=== PATIENT | female | born 1985 | race Caucasian/White ===

== ENCOUNTER 2016-08-18 20:45 | Emergency (ER) | payer MEDICAID ==
[~2016-08-18] VITALS: Ht 160 cm; Wt 88.0 kg
[~2016-08-18 20:45] MED LIST: ALPR1TAB7 PO; LEVO75TA4 PO; NEBI5TAB8 PO
[2016-08-18 20:50] VITALS: Ht 160 cm; Wt 88.0 kg
--- OUTSIDE RECORDS SUMMARY | 2016-08-18 20:50 | XMS REPORT | Referral Summary ---
Author Author [facility] Organization [facility] Address Unknown Phone Unavailable Care Team Providers Care Replenisher Name Role Phone No PCP, States Primary Care Physician [phone] Encounter VC Date(s): 02/17/16 - 02/17/16 [facility] [address] [id number] Discharge Diagnosis: Recurrent UTI Discharge Disposition: 01-Home or Self Care Attending Physician: Rose Marie Lind MD Admitting Physician: Rose Marie Lind MD Vital Signs Most recent to 1 oldest [Reference Range]: Blood Pressure 120/70 mmHg [90-140/60-90 mmHg] (02/17/16 9:23 AM) Problem List Condition Effective Dates Status Health Status Informant Abnormal Pap smear Active of cervix(Confirmed)1 Acute Active pain(Confirmed) Anemia(Confirmed) Active patient Anxiety(Confirmed)2 Active Bleeding Active precautions(Confirme d)3 Ovarian Active patient cyst(Confirmed) Dyslipidemia(Confirm Active ed) Stomach Active patient ulcer(Confirmed) AXIS I: ISRA Active (generalized anxiety disorder)(Confirmed) Gestational Active diabetes(Confirmed) Chanelle's Active patient disease(Confirmed) Headache(Confirmed) Active patient Hypertension(Confirm Active ed) Hypothyroidism Active (disorder)(Confirmed ) Knowledge Active deficit(Confirmed)4 Low back Active pain(Confirmed) Non-toxic uninodular Active goiter (disorder)(Confirmed ) AXIS I: Panic Active disorder without agoraphobia(Confirme d) Paresthesias(Confirm Active ed) Periodic limb Active movements of sleep(Confirmed) (Confirmed) Resolved Pulmonary Active patient embolism(Confirmed) AXIS I: MDD (major Active depressive disorder), recurrent episode, moderate(Confirmed) Sinus Active patient tachycardia(Confirme d) Thyroid Active nodule(Confirmed) : abnormal Pap smear, then 04/2011:colposcopy with ECC, then IUD, 2011 : Repeat pap done but couldn't find result. 2Problem added automatically by system based on initiation of Anxiety Plan of Care 3Problem added automatically by system based on initiation of Bleeding Precautions Plan of Care 4Problem added automatically by system based on initiation of Knowledge Deficit Plan of Care Allergies, Adverse Reactions, Alerts Substance Reaction Severity Status metoclopramide Adverse Reaction Severe Active Shortness of breath Toradol Nausea.... Active Medications acetaminophen 325 mg oral tablet 650 mg 2 tabs, Oral, q4hr, Other (See Comment), 0 Refill(s) Start Date: 07/19/15 Status: Ordered ALPRAZolam 1 mg oral tablet 1 mg 1 tabs, Oral, TID, as needed for anxiety, by dr May, 0 Refill(s) Start Date: 07/18/15 Status: Ordered Bystolic 5 mg oral tablet 5 mg 1 tabs, Oral, Daily, 0 Refill(s) Start Date: 07/18/15 Status: Ordered Macrobid 100 mg oral capsule 100 mg 1 caps, Oral, BID, X 10 days, # 20 caps, 0 Refill(s), Pharmacy: [facility] [id number], 1 caps Oral BID,x10 days Start Date: 02/17/16 Stop Date: 02/27/16 Status: Ordered Synthroid 75 mcg (0.075 mg) oral tablet 75 mcg 1 tabs, Oral, Daily, # 30 tabs, 11 Refill(s), Pharmacy: [facility] [id number], 1 tabs Oral Daily,x30 days Start Date: 12/22/15 Stop Date: 12/16/16 Status: Ordered Results Urinalysis Most recent to 1 oldest [Reference Range]: UA WBC [0-4] 0-2 (02/17/16 3:00 PM) UA RBC [0-4] 0-4 (02/17/16 3:00 PM) Epithelial Cells 0-2 (02/17/16 3:00 PM) UA Bacteria Moderate *ABN* (02/17/16 3:00 PM) UA Mucous Present (02/17/16 3:00 PM) Immunizations No data available for this section Procedures Procedure Date Related Diagnosis Body Site IUD - Removal of intrauterine device 03/2015 Insertion of IUD 11/2014 delivery Ovarian cyst Social History Social History Type Response Smoking Status Never smoker; Type: Cigarettes Assessment and Plan Extracted from: Title: Office Visit Note Author: Rose Marie Lind MD Date: 02/17/16 Assessment/Plan 30 yo F with recurrent UTIs. Recurrent UTI Discussed the pathophysiology of recurrent UTIs including inappropriate abx therapy, bacterial persistence due to anatomic defects etc. Most recent CT showed no urinary stones or obvious anatomic abnormalities in the pelvis. Will schedule patient for cystoscopy and pelvic exam. Will obtain UA and culture today. Will treat her with Macrobid for 10 days. Advised her to start taking OTC cranberry pills and D-mannose pills. Will schedule her for pelvic floor physical therapy. RTC in 3 months. Ordered: nitrofurantoin, 100 mg 1 caps, Oral, BID, X 10 days, # 20 caps, 0 Refill(s), Pharmacy: [facility] [id number], 1 caps Oral BID,x10 days Urinalysis Microscopic Urine Culture
--- OUTSIDE RECORDS SUMMARY | 2016-08-18 20:51 | XMS REPORT | Referral Summary ---
Author Author [facility] Organization [facility] Address Unknown Phone Unavailable Care Team Providers Care Packaging Assembler Name Role Phone No PCP, States Primary Care Physician [phone] Encounter VC Date(s): 02/29/16 - 02/29/16 [facility] [address] [address] [facility] Discharge Diagnosis: Thyroid nodule Discharge Disposition: 01-Home or Self Care Attending Physician: Warren Helm MD Admitting Physician: Warren Helm MD Vital Signs Most recent to 1 oldest [Reference Range]: Peripheral Pulse 104 bpm Rate [60-100 bpm] *HI* (02/29/16 3:55 PM) Blood Pressure 100/62 mmHg [90-140/60-90 mmHg] (02/29/16 3:55 PM) Problem List Condition Effective Dates Status Health [...] 0 Refill(s) Start Date: 07/18/15 Status: Ordered Synthroid 75 mcg (0.075 mg) oral tablet 75 mcg 1 tabs, Oral, Daily, # 30 tabs, 11 Refill(s), Pharmacy: [facility] [id number], 1 tabs Oral Daily,x30 days Start Date: 12/22/15 Stop Date: 12/16/16 Status: Ordered Results No data available for this section Immunizations No data available for this section Procedures Procedure Date Related Diagnosis Body Site IUD - Removal of intrauterine device 03/2015 Insertion of IUD 11/2014 delivery Ovarian cyst Social History Social History Type Response Smoking Status Never smoker; Type: Cigarettes Assessment and Plan Extracted from: Title: Office Visit Note Author: Warren Helm MD Date: 02/29/16 Assessment/Plan 1.Thyroid nodule check tsh, ft4. repeat thyroid ultrasound. f/u in 1 year. Ordered: Free T4 TSH 3rd Generation US Thyroid
--- OUTSIDE RECORDS SUMMARY | 2016-08-18 20:51 | XMS REPORT | Referral Summary ---
Author Author [facility] Organization [facility] Address Unknown Phone Unavailable Care Team Providers Care Gallery Host Name Role Phone No PCP, Pt States Primary Care Physician [phone] Encounter VC Date(s): 06/21/16 - 06/21/16 [facility] [address] [place] [address] [phone] Final: Pelvic and perineal pain Discharge Diagnosis: Pelvic pain Discharge Disposition: 01-Home or Self Care Attending Physician: Christiano Scott MD Admitting Physician: Christiano Scott MD Referring Physician: Self Referred, X Vital Signs Most recent to 1 oldest [Reference Range]: Temperature Oral 36.5 degC [35.8-37.3 degC] (06/21/16 4:08 PM) Peripheral Pulse 90 bpm Rate [60-100 bpm] (06/21/16 5:12 PM) Respiratory Rate 16 br/min [14-20 br/min] (06/21/16 5:12 PM) Blood Pressure 130/83 mmHg [90-140/60-90 mmHg] (06/21/16 5:12 PM) SpO2 100 % (06/21/16 5:12 PM) Problem List Condition Effective Dates Status [...] 0 Refill(s) Start Date: 07/18/15 Status: Ordered liothyronine 5 mcg oral tablet See Instructions, TAKE 1 TABLET BY MOUTH DAILY, # 90 tabs, 2 Refill(s), eRx: [facility] [id number], TAKE 1 TABLET BY MOUTH DAILY Start Date: 04/09/16 Status: Ordered magnesium citrate 1.745 g/30 mL oral liquid 8.725 g 150 mL, Oral, Once, # 300 mL, 0 Refill(s) Start Date: 06/11/16 Status: Ordered Percocet 5/325 oral tablet 1 tabs, Oral, q6hr, as needed for pain, # 6 tabs, 0 Refill(s) Start Date: 06/21/16 Status: Ordered Synthroid 75 mcg (0.075 mg) oral tablet 75 mcg 1 tabs, Oral, Daily, # 30 tabs, 11 Refill(s), Pharmacy: [facility] [id number], 1 tabs Oral Daily,x30 days Start Date: 12/22/15 Stop Date: 12/16/16 Status: Ordered Results Hematology Most recent to 1 oldest [Reference Range]: WBC [4.8-10.8 11.5 10*3/uL 10*3/uL] *HI* (06/21/16 4:13 PM) RBC [4.00-5.20] 4.01 (06/21/16 4:13 PM) Hgb [12.0-16.0 12.1 gm/dL gm/dL] (06/21/16 4:13 PM) Hct [37.0-47.0 %] 36.8 % *LOW* (06/21/16 4:13 PM) MCV [82.0-99.0 fL] 91.8 fL (06/21/16 4:13 PM) MCH [27.0-32.0 pg] 30.2 pg (06/21/16 4:13 PM) MCHC [32.0-36.0 32.9 gm/dL gm/dL] (06/21/16 4:13 PM) RDW [11.5-14.5 %] 13.6 % (06/21/16 4:13 PM) Platelet [150-400 383 10*3/uL 10*3/uL] (06/21/16 4:13 PM) MPV [9.4-12.4 fL] 9.6 fL (06/21/16 4:13 PM) Immature 0.2 % Granulocytes (06/21/16 4:13 PM) [0.0-1.0 %] Neutrophils [51-75 64 % %] (06/21/16 4:13 PM) Lymphocytes [20-46 24 % %] (06/21/16 4:13 PM) Monocytes [4-11 %] 6 % (06/21/16 4:13 PM) Eosinophils [0-4 %] 5 % *HI* (06/21/16 4:13 PM) Basophils [0-2 %] 0 % (06/21/16 4:13 PM) Neutro Absolute 7.39 [1.90-7.00] *HI* (06/21/16 4:13 PM) Lymph Absolute 2.78 [0.80-3.30] (06/21/16 4:13 PM) [place] Absolute 0.65 [0.30-1.00] (06/21/16 4:13 PM) Eos Absolute 0.60 [0.00-0.50] *HI* (06/21/16 4:13 PM) Baso Absolute 0.05 [0.00-0.20] (06/21/16 4:13 PM) Nucleated RBC 0.0 /100 WBC Automated [0 /100 (06/21/16 4:13 PM) WBC] Chemistry Most recent to 1 oldest [Reference Range]: Sodium Lvl [136-144 137 mEq/L mEq/L] (06/21/16 4:13 PM) Potassium Lvl 3.9 mEq/L [3.6-5.1 mEq/L] (06/21/16 4:13 PM) Chloride [99-109 104 mEq/L mEq/L] (06/21/16 4:13 PM) CO2 [22-32 mEq/L] 25 mEq/L (06/21/16 4:13 PM) AGAP [3-20] 8 (06/21/16 4:13 PM) BUN [4-20 mg/dL] 12 mg/dL (06/21/16 4:13 PM) Glucose Lvl [70-100 90 mg/dL mg/dL] (06/21/16 4:13 PM) Creatinine Lvl 0.76 mg/dL [0.44-1.03 mg/dL] (06/21/16 4:13 PM) eGFR [>60] >60 1 (06/21/16 4:13 PM) Calcium Lvl 9.0 mg/dL [8.6-10.0 mg/dL] (06/21/16 4:13 PM) Albumin Lvl [3.5-4.8 3.7 gm/dL gm/dL] (06/21/16 4:13 PM) Total Protein 6.7 gm/dL [6.1-7.9 gm/dL] (06/21/16 4:13 PM) Globulin [1.9-4.3 3.0 gm/dL gm/dL] (06/21/16 4:13 PM) ALT [14-54 U/L] 14 U/L (06/21/16 4:13 PM) AST [15-41 U/L] 14 U/L *LOW* (06/21/16 4:13 PM) Alk Phos [26-104 80 U/L U/L] (06/21/16 4:13 PM) Bili Total [0.2-1.2 0.1 mg/dL 2 mg/dL] *LOW* (06/21/16 4:13 PM) Lipase Lvl [8-48 30 U/L U/L] (06/21/16 4:13 PM) Screen, Negative Urine NPT (06/21/16 4:21 PM) 1Result Comment: Multiply eGFR results by 1.21 for race. 2Result Comment: Naproxen, specifically the metabolite O-desmethylnaproxen, may cause spurious elevation in Total Bilirubin levels. Urinalysis Most recent to 1 oldest [Reference Range]: UA Color Yellow (06/21/16 4:13 PM) UA Appear Clear (06/21/16 4:13 PM) UA pH [5.0-8.0] 7.0 (06/21/16 4:13 PM) UA Leuk Est Pos 2+ [Negative] *ABN* (06/21/16 4:13 PM) UA Nitrite Negative [Negative] (06/21/16 4:13 PM) UA Protein Negative [Negative] (06/21/16 4:13 PM) UA Glucose Negative [Negative] (06/21/16 4:13 PM) UA Ketones Negative [Negative] (06/21/16 4:13 PM) UA Urobilinogen Negative [<1.0] (06/21/16 4:13 PM) UA Bili [Negative] Negative (06/21/16 4:13 PM) UA Blood [Negative] Negative (06/21/16 4:13 PM) UA Spec Grav 1.020 [1.003-1.030] (06/21/16 4:13 PM) Type Catheter (06/21/16 4:13 PM) UA WBC [0-4] 0-2 (06/21/16 4:13 PM) UA RBC [0-2] 0-2 (06/21/16 4:13 PM) Epithelial Cells 2-5 (06/21/16 4:13 PM) UA Bacteria None Seen (06/21/16 4:13 PM) UA Mucous Present (06/21/16 4:13 PM) Immunizations No data available for this section Procedures Procedure Date Related Diagnosis Body Site IUD - Removal of intrauterine device 03/2015 Insertion of IUD 11/2014 delivery Ovarian cyst Social History Social History Type Response Smoking Status Never smoker; Type: Cigarettes Assessment and Plan No data available for this section
--- OUTSIDE RECORDS SUMMARY | 2016-08-18 20:54 | XMS REPORT ---
Author Author [place] - Organization Unknown Address Unknown Phone Unavailable Allergies, Adverse Reactions, Alerts * Reglan causes Adverse Reaction. * Latex Allergy has not been assessed. * IV Contrast Allergy has not been assessed. Problems No relevant problems exist. Procedures No relevant procedures performed. Medication Medication reconciliation has not been performed. Results LAB--BEDSIDE TESTING from 03/21/2013 10:25 PMAnion Gap NPT 12 (3-20 ) BUN Venous NPT 8 mg/dl (4-20 mg/dl) Calcium Ionized Venous 1.23 mmol/L (1.19-1.41 mmol/L) Venous CL NPT 102 mEq/L (99-109 mEq/L) Creatinine Venous NPT 0.7 mg/dL (0.4-1.0 mg/dL) Glucose Venous 86 mg/dL (70-100 mg/dL) HCT Venous NPT 35.0 % L (37.0-47.0 %) HGB Venous NPT 11.9 g/dL L (12.0-16.0 g/dL) Potassium Venous 3.7 mEq/L (3.6-5.1 mEq/L) Sodium Venous 137 mEq/L (136-144 mEq/L) Total CO2 Venous 23 mEq/L L (25-29 mEq/L) LAB--CHEMISTRY from 03/21/2013 10:18 PMHCG Quant 4767 mIU/mL LAB--MICROBIOLOGY from 03/21/2013 10:18 PMVaginitis (G vag, Trichomonas, Jenny ) Panel A Source: Cervix/Vaginal Collected: 03/21/13 22:18 Site: Received : 03/21/13 22:24 Order#: [id number] Affirm Vaginitis Panel FINAL 03/21/13 23:16 Positive for Trichomonas vaginalis Negative for Gardnerella vaginalis Negative for Jenny species PEREIRA FOR RESULTS: * - NEW RESULT - RESULT WAS MODIFIED AFTER FINAL STATUS SET LAB--URINE TESTS from 03/21/2013 8:50 PMAppearance Clear Bilirubin Negative (Negative ) Blood Negative (Negative ) Color Lt Yellow Glucose Negative (Negative ) Ketones, Urine Negative (Negative ) Leukocytes Esterase Trace A (Negative ) Nitrites Negative (Negative ) pH, Urine 5.0 (5.0-8.0 ) Protein Negative (Negative ) Specific Kite 1.017 (1.003-1.030 ) Collection Type: Clean Catch Urobilinogen Negative mg/dL (-<1.0 mg/dL) Bacteria Occasional A Epithelial Cells 10-20 /HPF Mucus Present RBC 0-2 /HPF (0-2 /HPF) Trichomonas Present A WBC 10-20 /HPF A (0-4 /HPF)
--- OUTSIDE RECORDS SUMMARY | 2016-08-18 20:54 | XMS REPORT | Referral Summary ---
Author Author [facility] Organization [facility] Address Unknown Phone Unavailable Care Team Providers Care Migration Agent Name Role Phone No PCP, Pt States Primary Care Physician [phone] Encounter VC Date(s): 06/11/16 - 06/11/16 [facility] [address] [place] [address] Discharge Diagnosis: Abdominal pain, acute Discharge Disposition: 01-Home or Self Care Attending Physician: Christiano Scott MD Admitting Physician: Christiano Scott MD Referring Physician: Self Referred, X Vital Signs Most recent to 1 oldest [Reference Range]: Temperature Oral 36.5 degC [35.8-37.3 degC] (06/11/16 6:37 PM) Peripheral Pulse 100 bpm Rate [60-100 bpm] (06/11/16 6:37 PM) Respiratory Rate 18 br/min [14-20 br/min] (06/11/16 6:37 PM) Blood Pressure 132/84 mmHg [90-140/60-90 mmHg] (06/11/16 6:37 PM) SpO2 100 % (06/11/16 6:37 PM) Problem List Condition Effective Dates Status [...] DAILY, # 90 tabs, 2 Refill(s), eRx: [id number], TAKE 1 TABLET BY MOUTH DAILY Start Date: 04/09/16 Status: Ordered magnesium citrate 1.745 g/30 mL oral liquid 8.725 g 150 mL, Oral, Once, # 300 mL, 0 Refill(s) Start Date: 06/11/16 Status: Ordered Percocet 5/325 oral tablet 1 tabs, Oral, q6hr, as needed for pain, X 3 days, # 12 tabs, 0 Refill(s) Start Date: 06/11/16 Stop Date: 06/14/16 Status: Ordered Synthroid 75 mcg (0.075 mg) oral tablet 75 mcg 1 tabs, Oral, Daily, # 30 tabs, 11 Refill(s), Pharmacy: [facility] [id number], 1 tabs Oral Daily,x30 days Start Date: 12/22/15 Stop Date: 12/16/16 Status: Ordered Results Hematology Most recent to 1 oldest [Reference Range]: WBC [4.8-10.8 9.3 10*3/uL 10*3/uL] (06/11/16 5:39 PM) RBC [4.00-5.20] 4.14 (06/11/16 5:39 PM) Hgb [12.0-16.0 12.7 gm/dL gm/dL] (06/11/16 5:39 PM) Hct [37.0-47.0 %] 37.9 % (06/11/16 5:39 PM) MCV [82.0-99.0 fL] 91.5 fL (06/11/16 5:39 PM) MCH [27.0-32.0 pg] 30.7 pg (06/11/16 5:39 PM) MCHC [32.0-36.0 33.5 gm/dL gm/dL] (06/11/16 5:39 PM) RDW [11.5-14.5 %] 13.8 % (06/11/16 5:39 PM) Platelet [150-400 359 10*3/uL 10*3/uL] (06/11/16 5:39 PM) MPV [9.4-12.4 fL] 9.7 fL (06/11/16 5:39 PM) Immature 0.3 % Granulocytes (06/11/16 5:39 PM) [0.0-1.0 %] Neutrophils [51-75 69 % %] (06/11/16 5:39 PM) Lymphocytes [20-46 21 % %] (06/11/16 5:39 PM) Monocytes [4-11 %] 6 % (06/11/16 5:39 PM) Eosinophils [0-4 %] 4 % (06/11/16 5:39 PM) Basophils [0-2 %] 1 % (06/11/16 5:39 PM) Neutro Absolute 6.38 [1.90-7.00] (06/11/16 5:39 PM) Lymph Absolute 1.94 [0.80-3.30] (06/11/16 5:39 PM) [place] Absolute 0.55 [0.30-1.00] (06/11/16 5:39 PM) Eos Absolute 0.35 [0.00-0.50] (06/11/16 5:39 PM) Baso Absolute 0.05 [0.00-0.20] (06/11/16 5:39 PM) Nucleated RBC 0.0 /100 WBC Automated [0 /100 (06/11/16 5:39 PM) WBC] Chemistry Most recent to 1 oldest [Reference Range]: Sodium Lvl [136-144 139 mEq/L mEq/L] (06/11/16 5:39 PM) Potassium Lvl 4.2 mEq/L [3.6-5.1 mEq/L] (06/11/16 5:39 PM) Chloride [99-109 104 mEq/L mEq/L] (06/11/16 5:39 PM) CO2 [22-32 mEq/L] 28 mEq/L (06/11/16 5:39 PM) AGAP [3-20] 7 (06/11/16 5:39 PM) BUN [4-20 mg/dL] 11 mg/dL (06/11/16 5:39 PM) Glucose Lvl [70-100 111 mg/dL mg/dL] *HI* (06/11/16 5:39 PM) Creatinine Lvl 0.59 mg/dL [0.44-1.03 mg/dL] (06/11/16 5:39 PM) eGFR [>60] >60 1 (06/11/16 5:39 PM) Calcium Lvl 9.5 mg/dL [8.6-10.0 mg/dL] (06/11/16 5:39 PM) Albumin Lvl [3.5-4.8 3.7 gm/dL gm/dL] (06/11/16 5:39 PM) Total Protein 6.9 gm/dL [6.1-7.9 gm/dL] (06/11/16 5:39 PM) Globulin [1.9-4.3 3.2 gm/dL gm/dL] (06/11/16 5:39 PM) ALT [14-54 U/L] 26 U/L (06/11/16 5:39 PM) AST [15-41 U/L] 21 U/L (06/11/16 5:39 PM) Alk Phos [26-104 84 U/L U/L] (06/11/16 5:39 PM) Bili Total [0.2-1.2 0.2 mg/dL 2 mg/dL] (06/11/16 5:39 PM) Lipase Lvl [8-48 29 U/L U/L] (06/11/16 5:39 PM) U Beta hCG Ql Neg (06/11/16 5:56 PM) 1Result Comment: Multiply eGFR results by 1.21 for race. 2Result Comment: Naproxen, specifically the metabolite O-desmethylnaproxen, may cause spurious elevation in Total Bilirubin levels. Urinalysis Most recent to 1 oldest [Reference Range]: UA Color Yellow (06/11/16 5:39 PM) UA Appear Sl Cloudy (06/11/16 5:39 PM) UA pH [5.0-8.0] 7.0 (06/11/16 5:39 PM) UA Leuk Est Negative [Negative] (06/11/16 5:39 PM) UA Nitrite Negative [Negative] (06/11/16 5:39 PM) UA Protein Negative [Negative] (06/11/16 5:39 PM) UA Glucose Negative [Negative] (06/11/16 5:39 PM) UA Ketones Negative [Negative] (06/11/16 5:39 PM) UA Urobilinogen Negative [<1.0] (06/11/16 5:39 PM) UA Bili [Negative] Negative (06/11/16 5:39 PM) UA Blood [Negative] Negative (06/11/16 5:39 PM) UA Spec Grav 1.020 [1.003-1.030] (06/11/16 5:39 PM) Type Catheter (06/11/16 5:39 PM) Immunizations No data available for this section Procedures Procedure Date Related Diagnosis Body Site IUD - Removal of intrauterine device 03/2015 Insertion of IUD 11/2014 delivery Ovarian cyst Social History Social History Type Response Smoking Status Never smoker; Type: Cigarettes Assessment and Plan No data available for this section
--- OUTSIDE RECORDS SUMMARY | 2016-08-18 20:55 | XMS REPORT | Referral Summary ---
Author Author [facility] Organization [facility] Address Unknown Phone Unavailable Care Team Providers Care Forestry Hunter Name Role Phone No PCP, Pt States Primary Care Physician [phone] Encounter VC Date(s): 06/14/16 - 06/15/16 [facility] [address] [place] [address] Final: Pelvic and perineal pain Discharge Diagnosis: Pain pelvic Discharge Disposition: 01-Home or Self Care Attending Physician: Christiano Scott MD Admitting Physician: Christiano Scott MD Vital Signs Most recent to 1 oldest [Reference Range]: Temperature Oral 36.8 degC [35.8-37.3 degC] (06/14/16 9:26 PM) Peripheral Pulse 96 bpm Rate [60-100 bpm] (06/14/16 9:26 PM) Heart Rate Monitored 100 bpm [60-100 bpm] (06/15/16 1:00 AM) Respiratory Rate 18 br/min [14-20 br/min] (06/15/16 1:00 AM) Blood Pressure 110/60 mmHg [90-140/60-90 mmHg] (06/15/16 1:00 AM) Mean Arterial 79 mmHg Pressure, Cuff (06/15/16 12:45 AM) SpO2 99 % (06/15/16 1:00 AM) Problem List Condition Effective Dates Status [...] DAILY, # 90 tabs, 2 Refill(s), eRx: [facility] [id number], TAKE 1 TABLET BY MOUTH DAILY Start Date: 04/09/16 Status: Ordered magnesium citrate 1.745 g/30 mL oral liquid 8.725 g 150 mL, Oral, Once, # 300 mL, 0 Refill(s) Start Date: 06/11/16 Status: Ordered Synthroid 75 mcg (0.075 mg) oral tablet 75 mcg 1 tabs, Oral, Daily, # 30 tabs, 11 Refill(s), Pharmacy: [facility] [id number], 1 tabs Oral Daily,x30 days Start Date: 12/22/15 Stop Date: 12/16/16 Status: Ordered Results Hematology Most recent to 1 oldest [Reference Range]: WBC [4.8-10.8 11.8 10*3/uL 10*3/uL] *HI* (06/14/16 10:56 PM) RBC [4.00-5.20] 4.11 (06/14/16 10:56 PM) Hgb [12.0-16.0 12.2 gm/dL gm/dL] (06/14/16 10:56 PM) Hct [37.0-47.0 %] 37.3 % (06/14/16 10:56 PM) MCV [82.0-99.0 fL] 90.8 fL (06/14/16 10:56 PM) MCH [27.0-32.0 pg] 29.7 pg (06/14/16 10:56 PM) MCHC [32.0-36.0 32.7 gm/dL gm/dL] (06/14/16 10:56 PM) RDW [11.5-14.5 %] 13.6 % (06/14/16 10:56 PM) Platelet [150-400 368 10*3/uL 10*3/uL] (06/14/16 10:56 PM) MPV [9.4-12.4 fL] 9.7 fL (06/14/16 10:56 PM) Immature 0.2 % Granulocytes (06/14/16 10:56 PM) [0.0-1.0 %] Neutrophils [51-75 63 % %] (06/14/16 10:56 PM) Lymphocytes [20-46 28 % %] (06/14/16 10:56 PM) Monocytes [4-11 %] 6 % (06/14/16 10:56 PM) Eosinophils [0-4 %] 3 % (06/14/16 10:56 PM) Basophils [0-2 %] 0 % (06/14/16 10:56 PM) Neutro Absolute 7.42 [1.90-7.00] *HI* (06/14/16 10:56 PM) Lymph Absolute 3.27 [0.80-3.30] (06/14/16 10:56 PM) [place] Absolute 0.74 [0.30-1.00] (06/14/16 10:56 PM) Eos Absolute 0.30 [0.00-0.50] (06/14/16 10:56 PM) Baso Absolute 0.05 [0.00-0.20] (06/14/16 10:56 PM) Nucleated RBC 0.0 /100 WBC Automated [0 /100 (06/14/16 10:56 PM) WBC] Chemistry Most recent to 1 oldest [Reference Range]: Sodium Lvl [136-144 134 mEq/L mEq/L] *LOW* (06/14/16 10:56 PM) Potassium Lvl 3.8 mEq/L [3.6-5.1 mEq/L] (06/14/16 10:56 PM) Chloride [99-109 101 mEq/L mEq/L] (06/14/16 10:56 PM) CO2 [22-32 mEq/L] 26 mEq/L (06/14/16 10:56 PM) AGAP [3-20] 7 (06/14/16 10:56 PM) BUN [4-20 mg/dL] 14 mg/dL (06/14/16 10:56 PM) Glucose Lvl [70-100 93 mg/dL mg/dL] (06/14/16 10:56 PM) Creatinine Lvl 0.69 mg/dL [0.44-1.03 mg/dL] (06/14/16 10:56 PM) eGFR [>60] >60 1 (06/14/16 10:56 PM) Calcium Lvl 9.0 mg/dL [8.6-10.0 mg/dL] (06/14/16 10:56 PM) Albumin Lvl [3.5-4.8 3.7 gm/dL gm/dL] (06/14/16 10:56 PM) Total Protein 7.2 gm/dL [6.1-7.9 gm/dL] (06/14/16 10:56 PM) Globulin [1.9-4.3 3.5 gm/dL gm/dL] (06/14/16 10:56 PM) ALT [14-54 U/L] 22 U/L (06/14/16 10:56 PM) AST [15-41 U/L] 18 U/L (06/14/16 10:56 PM) Alk Phos [26-104 85 U/L U/L] (06/14/16 10:56 PM) Bili Total [0.2-1.2 0.1 mg/dL 2 mg/dL] *LOW* (06/14/16 10:56 PM) Lipase Lvl [8-48 30 U/L U/L] (06/14/16 10:56 PM) Screen, Negative Urine NPT (06/14/16 10:18 PM) 1Result Comment: Multiply eGFR results by 1.21 for race. 2Result Comment: Naproxen, specifically the metabolite O-desmethylnaproxen, may cause spurious elevation in Total Bilirubin levels. Urinalysis Most recent to 1 oldest [Reference Range]: UA Color Yellow (06/14/16 10:20 PM) UA Appear Sl Cloudy (06/14/16 10:20 PM) UA pH [5.0-8.0] 6.0 (06/14/16 10:20 PM) UA Leuk Est Negative [Negative] (06/14/16 10:20 PM) UA Nitrite Negative [Negative] (06/14/16 10:20 PM) UA Protein Negative [Negative] (06/14/16 10:20 PM) UA Glucose Negative [Negative] (06/14/16 10:20 PM) UA Ketones Negative [Negative] (06/14/16 10:20 PM) UA Urobilinogen Negative [<1.0] (06/14/16 10:20 PM) UA Bili [Negative] Negative (06/14/16 10:20 PM) UA Blood [Negative] Negative (06/14/16 10:20 PM) UA Spec Grav 1.020 [1.003-1.030] (06/14/16 10:20 PM) Type Catheter (06/14/16 10:20 PM) Immunizations No data available for this section Procedures Procedure Date Related Diagnosis Body Site IUD - Removal of intrauterine device 03/2015 Insertion of IUD 11/2014 delivery Ovarian cyst Social History Social History Type Response Smoking Status Never smoker; Type: Cigarettes Assessment and Plan No data available for this section
--- OUTSIDE RECORDS SUMMARY | 2016-08-18 21:08 | XMS REPORT ---
Author Author [facility], [facility] - Organization Unknown Address Unknown Phone Unavailable [...] 22:18 Site: Received : 03/21/13 22:24 Order#: [id number] Affirm Vaginitis Panel FINAL 03/21/13 23:16 Positive [...] (5.0-8.0 ) Protein Negative (Negative ) Specific [place] 1.017 (1.003-1.030 ) Collection Type: Clean Catch Urobilinogen Negative mg/dL (-<1.0 mg/dL) Bacteria Occasional A Epithelial Cells 10-20 /HPF Mucus Present RBC 0-2 /HPF (0-2 /HPF) Trichomonas Present A WBC 10-20 /HPF A (0-4 /HPF)
[2016-08-18] MEDS ORDERED: ORPHENADRINE 60mg/2ml INJECTION IV ONE (21:15)
[2016-08-18] MEDS ORDERED: ONDANSETRON 4mg/2ml INJECTION IV ONE (21:15)
[2016-08-18] MEDS ORDERED: NAPROXEN 500 MG TABLET PO ONE (21:15)
[2016-08-18] MEDS ORDERED: NORMAL SALINE 1,000 ML IV ONE (21:15)
--- NOTE | 2016-08-18 21:17 | ERPDOC ---
Departure Disposition Decision Date: Aug 18, 2016 Disposition Decision Time: 22:30 Disposition: 01 DISCHARGED HOME, SELF-CARE Impression Impression Impression: Primary Impression: Viral syndrome Additional Impressions: Chest wall pain Tension headache Severity: Severe Condition: Improved Seen By: Physician only Referrals: SY THOMAS (PCP) Patient Instructions: Chest Wall Pain (ED) Problems/Meds/Labs Reviewed?: Yes Medications reviewed and manag: Yes Additional Instructions: Naprosyn/Aleve 2 tablets twice daily for baseline pain control May also use Tylenol up to 1000 mg 4 times daily OR your prescribed narcotic pain medication in addition. Zofran 4 mg up to 4 times daily as needed for nausea See your doctor next week if not improving Follow up care ordered?: Yes Mental Status: Alert Scripts Ondansetron (Zofran Odt) 4 Mg Tab.rapdis 4 MG PO Q6HR, #20 TAB Oral disintegrating tablet Prov: TOMASA BONILLA MD 08/18/16 Baclofen (Baclofen) 10 Mg Tablet 10 MG PO TID, #30 TAB 0 Refills Prov: TOMASA BONILLA MD 08/18/16 HPI - Chest Pain General Chief Complaint: Chest Pain Stated Complaint: CHEST PAIN/PAIN IN BACK OF NECK Time Seen by Provider: 20:47 Source: patient, family Exam Limitations: no limitations HPI - Chest Pain Initial Comments Patient has had left-sided upper lateral chest pain, left shoulder pain, and left posterior neck pain for the past 12+ hours. Patient has no known injury, but woke up this morning with feelings of nausea and achiness in the left upper chest radiating into the shoulder posterior left shoulder and neck. 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 She was called out Phenergan 25 mg , she took this and one of her Percocet 5 mg without relief. Patient continues to have nausea with generalized pain over the left upper chest , left lateral shoulder, left posterior shoulder and left neck. Occurred At: home Onset/Timing: Rapid Duration: 12-24 hrs Activities at Onset/Context: rest Location: anterior L, epigastric, abdomen 1 - Pain, tenderness 2 - Pain, tenderness Associated Symptoms: abdominal pain, dizziness, fast HR (normal for her), nausea/vomiting, DENIES: back pain, diaphoresis, edema, fatigue, fever/chills, headache, heartburn, irregular HR, rash, shortness of breath, slow HR, swelling/ lump in chest, syncope, weakness Chest Pain Radiation: shoulders Nitro Today/Relief: no nitro taken today Aspirin Treatment Today: unknown Prior Chest Pain/Cardiac Brown: non-cardiac Hx of Similar Symptoms: No Allergies: Coded Allergies: metoclopramide (Verified Allergy, Intermediate, CHOCKING, 07/08/16) amoxicillin (Verified Allergy, Unknown, 07/08/16) clavulanic acid (Verified Allergy, Unknown, 07/08/16) ketorolac (Verified Allergy, Unknown, SHORTNESS OF BREATH, 07/08/16) Past History Patient Medical History Problem List Updates: Chronic pelvic pain Past Medical History Female: endometriosis, kidney stones, other Surgical History Reproductive/: D&C, tubal ligation Social History Smoking Status: Never smoker Does patient use chewing tobac: No Second Hand Exposure: No Substance Use Type: does not use Alcohol Intake: none Record Review Pertinent history updated: Yes Review of Systems Constitutional Constitutional: DENIES: appetite decrease, appetite increase, chills, dizziness , fever, weakness ENMT Ears: DENIES: pain Hearing: DENIES: hearing loss, tinnitus Balance: DENIES: vertigo Mouth/Throat: DENIES: change in swallowing, change in voice, hoarsness, painful swallowing, sore throat Cardiovascular Cardiac: chest pain, DENIES: dyspnea on exertion Rhythm/Rate: DENIES: irregular beat, palpitations, tachycardia Vascular: DENIES: pedal edema Pulmonary Respiratory: DENIES: cough, dyspnea, pleuritic chest pain GI Upper Abdomen: nausea, DENIES: dysphagia, heartburn/indigestion, pain, vomiting Lower Abdomen: diarrhea, DENIES: blood in stool, constipation, pain General: DENIES: burning, dysuria, frequency, pain, urgency Musculoskeletal General: DENIES: cramps, joint pain, joint swelling, pain, weakness Integumentary Skin: DENIES: rash, sores Neurological General: DENIES: headache, numbness, tingling, vertigo, weakness Psychiatric Psychiatric: DENIES: anxiety, depression, nervousness Physical Exam General General Nourishment: well nourished, well developed, appears stated age, no acute distress General Body Habitus: well groomed Vitals and Pain First Documented Vital Signs Date Time Temp Pulse Resp B/P Pulse Ox O2 Delivery O2 Flow Rate FiO2 08/18/16 20:50 98.6 104 20 123/57 99 Room Air Weight: Kilograms: 88.000 Height (feet): 5 Height (inches): 3.00 Triage Pain Scale: RN VS reviewed by Provider: Yes Normal Exams: Head: Normocephalic w/o trauma Eyes: Pupils are PERRLA w/ EOMI, No scleral icterus, irritation, or foreign bodies noted ENMT: No facial trauma, nasal exudates, pharyngeal erythema, or exudates are noted ENMT (brief) ENMT Brief: FOUND: TM clear, TM good light reflex, ear canals clear, mucosa moist, normal dentition, NOT FOUND: nasal erythema, nasal exudate, nasal swelling, pharnyx erythema Neck (brief) Neck: FOUND: tenderness (left upper trapezius tenderness, palpation reproduces the patient's symptoms.), trachea midline, NOT FOUND: JVD, adenopathy, nuchal rigidity, spasm, thyromegaly, tracheal deviation Respiratory (brief) Respiratory: FOUND: clear all peralta, equal bilaterally, symmetrical, tenderness (left pectoral tenderness, left deltoid tenderness, reproduces the patient's symptoms), NOT FOUND: rales, wheezes Cardiovascular (brief) Cardiac: FOUND: regular rate, regular rhythm, NOT FOUND: pedal edema Capillary Refill: <2 sec Pulses: all distal extremities, equal, strong Abdomen (brief) Abdominal Brief: FOUND: bowel normo active x4, soft, tender, NOT FOUND: distended, hepatosplenomegaly Lymphatic (brief) Lymphatic Brief: NOT FOUND: adenopathy, lymphedema Musculoskeletal (brief) Musculoskeletal Brief: NOT FOUND: deformity, loss of motion, spasm, tenderness Integumentary (brief) Integumentary Brief: FOUND: dry, pink, warm Neurologic (brief) Neurological Brief: FOUND: CN w/o gross def to obs, motor-no gross deficits, sensory-no gross deficits Psychiatric (brief) Psychiatric Brief: FOUND: alert, attentive, normal affect, oriented Progress Results/Orders Orders Procedure Category Date Status Time Iv Lock (Ed Only) EDM 08/18/16 Transmitted 21:03 Chest, Pa & Lateral RAD 08/18/16 Taken EKG EKG 08/18/16 Taken Orphenadrine (Norflex) PHA 4/1/17 Complete 21:15 Normal Saline (Normal PHA 08/18/16 Complete Saline Iv) 21:15 Naproxen (Naprosyn PHA 08/18/16 Complete 500mg) 21:15 Cbc W/Auto LAB 08/18/16 Complete Diff-Reflex Manual Cmp - Comprehensive LAB 08/18/16 Complete Metabolic Lipase LAB 08/18/16 Complete Ondansetron Inj PHA 08/18/16 Complete (Zofran) 21:15 Ua, Dip Wreflex LAB 08/18/16 Logged [employer] 21:19 Baclofen (Baclofen 10 PHA 08/18/16 Complete Mg (Prepack)) 21:45 Simethicone (Phazyme) PHA 08/18/16 In Process 22:30 Lab Results Laboratory Tests Test 08/18/16 21:34 White Blood Count 11.9T/MM3 Red Blood Count 4.19M/MM3 Hemoglobin 12.5GM/DL Hematocrit 37.6% Mean Corpuscular Volume 89.7UM3 Mean Corpuscular Hemoglobin 29.8UUG Mean Corpuscular Hemoglobin Concent 33.2GM/DL RDW Standard Deviation 42.1FL Platelet Count 335T/MM3 Mean Platelet Volume 9.6UM3 Immature Granulocyte % (Auto) % Neutrophils (%) (Auto) % Lymphocytes (%) (Auto) % Monocytes (%) (Auto) % Eosinophils (%) (Auto) % Basophils (%) (Auto) % Absolute Immature Granulocyte (auto T/MM3 Absolute Neutrophils (auto) T/MM3 Absolute Lymphocytes (auto) T/MM3 Absolute Monocytes (auto) T/MM3 Absolute Eosinophils (auto) T/MM3 Absolute Basophils (auto) T/MM3 Neutrophils % (Manual) 89.0% Band Neutrophils % 1.0% Lymphocytes % (Manual) 7.0% Monocytes % (Manual) 3.0% Absolute Neutrophils (Manual) 10.6T/MM3 Band Neutrophils # 0.1T/MM3 Lymphocytes # (Manual) 0.8T/MM3 Monocytes # (Manual) 0.4T/MM3 Red Cell Morphology Comment Normal Turbidity < 20 Sodium Level 143MEQ/L Potassium Level 3.9MEQ/L Chloride Level 104MEQ/L Carbon Dioxide Level 25MEQ/L Anion Gap 14MEQ/L Blood Urea Nitrogen 10.0MG/DL Creatinine 0.6MG/DL Glomerular Filtration Rate Calc 115 BUN/Creatinine Ratio 17RATIO Glucose Level 117MG/DL Calculated Osmolality 275MOSM/KG Calcium Level 9.2MG/DL Total Bilirubin 0.40MG/DL Icterus Index < 2 Aspartate Amino Transf (AST/SGOT) 22U/L Alanine Aminotransferase (ALT/SGPT) 25U/L Alkaline Phosphatase 92U/L Total Protein 7.3G/DL Albumin 4.0G/DL Globulin 3.3G/DL Albumin/Globulin Ratio 1.2RATIO Lipase 42U/L Chemistry Specimen Hemolysis < 15 Medications Current ED Medications Orphenadrine Citrate 60 mg 60 mg O ONCE IV ; Start 08/18/16 at 21:15; Stop at 21:33; Status DC Sodium Chloride (Normal Saline IV) 1,000 ml @ 0 mls/hr Q0M ONCE IV Last administered on 08/18/16 21:30; Start 08/18/16 at 21:15; Stop 08/18/16 at 21:16; Status DC Naproxen (NAPROSYN 500mg) 500 mg O ONCE PO ; Start 08/18/16 at 21:15; Stop at 21:16; Status DC Ondansetron HCl (Zofran) 4 mg O ONCE IV Last administered on 08/18/16 21:31; Start 08/18/16 at 21:15; Stop 08/18/16 at 21:16; Status DC Baclofen (BACLOFEN 10 MG (PrePack)) 1 pack O ONCE SENT HOME ; Start 08/18/16 at 21:45; Stop 08/18/16 at 21:46; Status DC Simethicone (Phazyme) 125 mg O ONCE PO ; Start 08/18/16 at 22:30; Stop 08/18/16 at 22:31 Progress Progress Patient has a history of significant opioid use and questionable opioid with blatant drug-seeking behavior to this ER in the past. Therefore I'm electing not to use opioid analgesics with this patient. Patient is given Naprosyn, Norflex, and 1 L normal saline IV fluid bolus with Zofran 4 mg for nausea - EKG shows a normal sinus rhythm, borderline tachycardic at 101 pulse, otherwise no ectopy, ischemia, or infarction CBC - N CMP/L - N UA- PT HAS NOT PROVIDED YET. Patient refused Norflex initially due to feelings of possible anxiety over the medication. I recommended baclofen, and patient has refused that so far. Patient thinks that this might be due to gas in her stomach, and is worried that she "might get a migraine because her head is now hurting. Patient was again instructed to use baclofen, prescription and pack were sent with the patient, as well as Marla for nausea. TOMASA BONILLA MD Aug 18, 2016 21:17
--- NOTE | 2016-08-18 21:28 | NUR ---
MED REFUSAL PT REFUSED NORFLEX. NOTIFIED.
--- NOTE | 2016-08-18 21:29 | NUR ---
PT TO IMAGING
--- NOTE | 2016-08-18 21:39 | NUR ---
PT RETURN FROM IMAGING
[2016-08-18 21:44] LABS: HCT - HEMATOCRIT 37.6 % (36-46); HGB - HEMOGLOBIN 12.5 GM/DL (12-16); MEAN CORPUSCULAR HGB 29.8 UUG (26-34); MEAN CORPUSCULAR HGB CONC(MCHC 33.2 GM/DL (31-37); MEAN CORPUSCULAR VOLUME 89.7 UM3 (80-100); MEAN PLATELET VOLUME 9.6 UM3 (9.4-12.4); RED BLOOD COUNT 4.19 M/MM3 (4.00-5.20); WBC - WHITE BLOOD COUNT 11.9 T/MM3 (4.5-11.0)
[2016-08-18] MEDS ORDERED: BACLOFEN 10 MG TABLET #3 (PrePack) SENT HOME ONE (21:45)
[2016-08-18 21:48] LABS: ALBUMIN/GLOBULIN RATIO 1.2 RATIO (1.1-2.2); ALKALINE PHOSPHATASE 92 U/L (38-126); ALT (SGPT) 25 U/L (9-52); ANION GAP 14 MEQ/L (5-15); AST (SGOT) 22 U/L (14-36); BUN/CREATININE RATIO 17 RATIO (6-26); CALCIUM 9.2 MG/DL (8.4-10.2); CHLORIDE 104 MEQ/L (98-107); CO2 - CARBON DIOXIDE 25 MEQ/L (22-30); CREATININE 0.6 MG/DL (0.7-1.2); GLOMERULAR FILTRATION RATE 115; GLUCOSE 117 MG/DL (65-110); LIPASE 42 U/L (23-300); POTASSIUM 3.9 MEQ/L (3.6-5); SODIUM 143 MEQ/L (134-144); TOTAL PROTEIN 7.3 G/DL (6.3-8.2)
[2016-08-18 21:52] LABS: BAND NEUTROPHILS # 0.1 T/MM3; LYMPHOCYTES # (MANUAL) 0.8 T/MM3 (1-4.8); MONOCYTES # (MANUAL) 0.4 T/MM3 (0-0.8); NEUTROPHILS #(MANUAL)-ABSOLUTE 10.6 T/MM3 (1.8-7.7); TOTAL CELLS COUNTED 100 %
[2016-08-18] MEDS ORDERED: SIMETHICONE 125 MG CAPSULE PO ONE (22:30)
[2016-08-18] MEDS ORDERED: ONDA4TAB7 PO (22:32)
[2016-08-18] MEDS ORDERED: BACL10TA PO (22:32)
[2016-08-18] MEDS ORDERED: ONDANSETRON LIQ 4mg/5ml #3 (PrePack) SENT HOME ONE (23:00)
[2016-08-18 23:05] VITALS: BP 123/57; PULSE 98; RESP 20; TEMP 98.6; O2SAT 98
--- NOTE | 2016-08-18 23:05 | NUR ---
DC VITALS PT REFUSED DEPARTURE VITALS
--- NOTE | 2016-08-18 23:05 | NUR ---
DEPART PT GIVEN DI FOR CHEST WALL PAIN, BACLOFEN, ZOFRAN ODT, F/U. PREPAK/RX PROVIDED FOR BACLOFEN AND ZOFRAN ODT. QUESTIONS ASKED/ANSWERED - DENIES FURTHER QUESTIONS AT THIS TIME. PT STATES SOME IMPROVEMENT IN PAIN AT THIS TIME. IV SITE REMOVED. PERSONAL BELONGINGS GATHERED. PT AMBULATED/ESCORTED TO ED EXIT - GAIT STABLE, NO SIGN OF DISTRESS.
[2016-08-18] MEDS ORDERED: ONDANSETRON ODT 4mg #3 (PrePack) SENT HOME ONE (23:15)
--- NOTE | 2016-08-19 13:42 | DI ---
INDICATION: ITS.REASON: left chest pain PROCEDURE: CHEST 2-VIEWS UPRIGHT (PA \T\ LAT) Encounter: Initial COMPARISON: None FINDINGS: The lungs are clear without evidence of focal abnormal airspace opacity. There is no pleural effusion or pneumothorax. The heart size, mediastinal contours and pulmonary vascularity are within normal limits. There is no significant skeletal abnormality. IMPRESSION: No acute cardiopulmonary disease. .
== END 2016-08-18 23:05 | disposition home or self-care (01) ==
LOC: ED 20:45
DX: R07.89 Other chest pain (principal); B34.9 Viral infection, unspecified; G44.209 Tension-type headache, unspecified, not intractable
CPT/HCPCS: 71020; 80053; 83690; 85025; 93005; 96361; 96374; 99284; J2405; J7030

== ENCOUNTER 2016-10-11 21:53 | Emergency (ER) | payer MEDICAID ==
[~2016-10-11] VITALS: Ht 162.6 cm; Wt 91.6 kg
[~2016-10-11 21:53] MED LIST changes: +BACL10TA PO; +ONDA4TAB7 PO
[2016-10-11 21:55] VITALS: TEMP 97.6; Ht 162.6 cm; Wt 91.6 kg
--- OUTSIDE RECORDS SUMMARY | 2016-10-11 22:02 | XMS REPORT ---
Author Author [facility] - Organization Unknown Address Unknown [...] 22:18 Site: Received : 03/21/13 22:24 Order#: [id number] Affirm Vaginitis Panel FINAL 03/21/13 23:16 Positive [...] (5.0-8.0 ) Protein Negative (Negative ) Specific [place] 1.017 (1.003-1.030 ) Collection Type: Clean Catch Urobilinogen Negative mg/dL (-<1.0 mg/dL) Bacteria Occasional A Epithelial Cells 10-20 /HPF Mucus Present RBC 0-2 /HPF (0-2 /HPF) Trichomonas Present A WBC 10-20 /HPF A (0-4 /HPF)
--- OUTSIDE RECORDS SUMMARY | 2016-10-11 22:03 | XMS REPORT | Continuity of Care Document ---
Author Author [facility] Organization [facility] Address Unknown Phone Unavailable Care Team Providers Care Hairspring I Inspector Name Role Phone SY THOMAS Primary Care Physician [phone] Insurance Providers Guarantor Ebenezer Grayson Address [address] [place] [id number] Email DENIED 08-18-16 Payer [facility] Community Plan Policy Number [id number] Subscriber's Name MaximeEbenezer Doe Relationship 18 Self Effective Date 16 Expiration Date 16 Chief Complaint and Reason for Visit Chief Complaint Chest Pain Reason for Visit Tension headache Chest wall pain [id number] Problems Active Problems Medical Problem Onset Date Status Drug-seeking behavior Unknown Acute Flank pain Unknown Acute Opioid abuse Unknown Ovarian cyst Unknown Past Problems Medical Problem Onset Date Abdominal pain, left lower quadrant Unknown Back pain Unknown Chest wall pain Unknown Chronic pelvic pain in female Unknown Drug-seeking behavior Unknown Flank pain Unknown Patient left without being seen Unknown Strep pharyngitis Unknown Tension headache Unknown Viral syndrome Unknown Medications Current Home Medications Medication Dose Units Route Directions Days Qty Instructions Start Date Alprazolam 1 Mg Tablet 1 Mg Oral as needed for Anxiety 06/10/16 Baclofen 10 Mg Tablet 10 Mg Oral Three Times A Day 30 Tablet Levothyroxine Sodium (Synthroid) 75 Mcg Tablet 75 Mcg Oral Before Breakfast 03/12/16 Nebivolol Hcl (Bystolic) 5 Mg Tablet 5 Mg Oral Daily 05/11/16 Ondansetron (Zofran Odt) 4 Mg Tab.rapdis 4 Mg Oral Q6h/0300,0900,1500,2100 20 Tablet Oral disintegrating tablet 08/18/16 Past Home Medications Medication Directions Ordered Status Acetaminophen 500 Mg Tablet, 500 Mg Oral Every 4 Hours as needed for Pain Discontinued Alprazolam 1 Mg Tablet, 1 Mg Oral Three Times A Day as needed for Anxiety Discontinued Azithromycin 250 Mg Tablet, 1 Pack Oral As Directed 05/30/16 Discontinued Benzonatate 200 Mg Capsule, 1 Cap Oral Every 8 Hours as needed for Cough 04/05 Discontinued Hydrocodone/Acetaminophen ([place] 5-325 Tablet) 5-325 Tablet, 1 Tab Oral Every 6 Hours as needed for Pain 03/12/16 Discontinued Ibuprofen 200 Mg Tablet, 800 Mg Oral Every 8 Hours as needed for Pain Discontinued Social History Social History Problem Response Recorded Date/Time Onset Date Status Hx Substance Use No 08/18/2016 9:47pm Not Applicable Not Applicable Hx Alcohol Use Yes 08/18/2016 9:47pm Not Applicable Not Applicable Query Response Start Date Stop Date Smoking Status Never smoker Hospital Discharge Instructions No hospital discharge instructions. Plan of Care Discharge Date 08/18/16 11:05pm Disposition 01 DISCHARGED HOME, SELF-CARE Condition at Discharge Improved Instructions/Education Provided Chest Wall Pain (ED) Prescriptions See Medication Section Referrals SY THOMAS Address: [address] [place] [id number] Additional Instructions/Education Naprosyn/Aleve 2 tablets twice daily for baseline pain control May also use Tylenol up to 1000 mg 4 times daily OR your prescribed narcotic pain medication in addition. Zofran 4 mg up to 4 times daily as needed for nausea See your doctor next week if not improving Care Plan and Goals Physician Care Plan Problem Viral syndrome with viral cephalgiatension headache Goal: Follow up with primary care provider Instructions: Take medications and follow care plan as discussed/written Naprosyn/Aleve 2 tablets twice daily for baseline pain control May also use Tylenol up to 1000 mg 4 times daily OR your prescribed narcotic pain medication in addition. Zofran 4 mg up to 4 times daily as needed for nausea See your doctor next week if not improving Functional Status No functional status results. Allergies, Adverse Reactions, Alerts Allergen Type Severity Reaction Status Last Updated Clavulanate Allergy Unknown Active 07/08/16 Amoxicillin Allergy Unknown Active 07/08/16 Metoclopramide Allergy Intermediate CHOCKING Active 07/08/16 Ketorolac Allergy Unknown SHORTNESS OF BREATH Active 07/08/16 Immunizations Query Response on File Recorded Date/Time Influenza Vaccine Hx DOES NOT WANT 08/18/16 9:47pm Vital Signs Acute Vital Signs Vital Response Date/Time Temperature (Fahrenheit) 98.6 deg F (96.8 - 99.1) 08/18/2016 11:05pm Temperature (Calculated Celsius) 37.99313 degrees C (36.0 - 37.3) 08/18/2016 11:05pm Pulse Rate (adult) 98 bpm (60 - 100) 08/18/2016 11:05pm Respiratory Rate 20 breaths/min (10 - 20) 08/18/2016 11:05pm O2 Sat by Pulse Oximetry 98 % (90 - 100) 08/18/2016 11:05pm Blood Pressure 123/57 mm Hg 08/18/2016 11:05pm Height (Feet) 5 feet 08/18/2016 8:50pm Height (Inches) 3.00 inches 08/18/2016 8:50pm Weight (Kilograms) 88.000 kg 08/18/2016 8:50pm Body Mass Index (BMI) 34.0 08/18/2016 8:50pm Results Laboratory Results Test Name Result Units Flags Reference Collection Date/Time Result Date/ Time Comments White Blood Count 11.9 T/MM3 H 4.5-11.0 08/18/2016 9:34pm 08/18/2016 9: 48pm Red Blood Count 4.19 M/MM3 4.00-5.20 08/18/2016 9:34pm 08/18/2016 9: 48pm Hemoglobin 12.5 GM/DL 12-16 08/18/2016 9:34pm 08/18/2016 9:48pm Hematocrit 37.6 % 36-46 08/18/2016 9:34pm 08/18/2016 9:48pm Mean Corpuscular Volume 89.7 UM3 80-100 08/18/2016 9:34pm 08/18/2016 9: 48pm Mean Corpuscular Hemoglobin 29.8 UUG 26-34 08/18/2016 9:34pm 2016 9:48pm Mean Corpuscular Hemoglobin Concent 33.2 GM/DL 31-37 08/18/2016 9:34pm 08/18/2016 9:48pm RDW Standard Deviation 42.1 FL 36.9-50.2 08/18/2016 9:34pm 08/18/2016 9 :48pm Platelet Count 335 T/MM3 130-400 08/18/2016 9:34pm 08/18/2016 9:48pm Mean Platelet Volume 9.6 UM3 9.4-12.4 08/18/2016 9:34pm 08/18/2016 9: 48pm Neutrophils % (Manual) 89.0 % H 33-66 08/18/2016 9:34pm 08/18/2016 9: 52pm Band Neutrophils % 1.0 % 0-6 08/18/2016 9:34pm 08/18/2016 9:52pm Lymphocytes % (Manual) 7.0 % L 23-45 08/18/2016 9:34pm 08/18/2016 9: 52pm Monocytes % (Manual) 3.0 % 0-9.0 08/18/2016 9:34pm 08/18/2016 9:52pm Band Neutrophils # 0.1 T/MM3 08/18/2016 9:34pm 08/18/2016 9:52pm Absolute Neutrophils (Manual) 10.6 T/MM3 H 1.8-7.7 08/18/2016 9:34pm 05/2016 9:52pm Lymphocytes # (Manual) 0.8 T/MM3 L 1-4.8 08/18/2016 9:34pm 08/18/2016 9: 52pm Monocytes # (Manual) 0.4 T/MM3 0-0.8 08/18/2016 9:34pm 08/18/2016 9: 52pm Red Cell Morphology Comment NORMAL 08/18/2016 9:34pm 08/18/2016 9: 52pm Icterus Index < 2 0-7 08/18/2016 9:34pm 08/18/2016 9:48pm Chemistry Specimen Hemolysis < 15 0-25 08/18/2016 9:pm 08/18/2016 9 :48pm 0-25: Specimen Exhibited No Hemolysis. Turbidity < 20 0-20 08/18/2016 9:34pm 08/18/2016 9:48pm Sodium Level 143 MEQ/L 134-144 08/18/2016 9:34pm 08/18/2016 9:48pm Potassium Level 3.9 MEQ/L 3.6-5 08/18/2016 9:3408/18/2016 9:48pm Chloride Level 104 MEQ/L 98-107 08/18/2016 9:34pm 08/18/2016 9:48pm Carbon Dioxide Level 25 MEQ/L 22-30 08/18/2016 9:3408/18/2016 9: 48pm Anion Gap 14 MEQ/L 5-15 08/18/2016 9:34pm 08/18/2016 9:48pm Blood Urea Nitrogen 10.0 MG/DL 7-17 08/18/2016 9:3408/18/2016 9: 48pm Creatinine 0.6 MG/DL L 0.7-1.2 08/18/2016 9:34pm 08/18/2016 9:48pm BUN/Creatinine Ratio 17 RATIO 6-26 08/18/2016 9:08/18/2016 9:48pm Glomerular Filtration Rate Calc 115 08/18/2016 9:34pm 08/18/2016 9: 48pm Glucose Level 117 MG/DL H 65-110 08/18/2016 9:3408/18/2016 9:48pm Calculated Osmolality 275 MOSM/KG 261-280 08/18/2016 9:3408/18/2016 9:48pm Calcium Level 9.2 MG/DL 8.4-10.2 08/18/2016 9:3408/18/2016 9:48pm Total Bilirubin 0.40 MG/DL 0.20-1.30 08/18/2016 9:34pm 08/18/2016 9: 48pm Alkaline Phosphatase 92 U/L 38-126 08/18/2016 9:08/18/2016 9:48pm Total Protein 7.3 G/DL 6.3-8.2 08/18/2016 9:3408/18/2016 9:48pm Albumin 4.0 G/DL 3.5-5.0 08/18/2016 9:08/18/2016 9:48pm Globulin 3.3 G/DL 2.4-3.6 08/18/2016 9:3408/18/2016 9:48pm Albumin/Globulin Ratio 1.2 RATIO 1.1-2.2 08/18/2016 9:3408/18/2016 9 :48pm Aspartate Amino Transf (AST/SGOT) 22 U/L 14-36 08/18/2016 9:34pm 2016 9:48pm Alanine Aminotransferase (ALT/SGPT) 25 U/L 9-52 08/18/2016 9:34pm 08/18 9:48pm Lipase 42 U/L 23-300 08/18/2016 9:34pm 08/18/2016 9:48pm Procedures Procedure Status Date Provider(s) Emergency dept visit Completed 05/30/16 Urine test Completed 06/10/16 Emergency dept visit Completed 06/10/16 Emergency dept visit Completed 07/08/16 Encounters Encounter Location Arrival/Admit Date Discharge/Depart Date Attending Provider Departed Emergency Room [facility] 08/18/16 8:45pm 08/18/16 11: 05pm TOMASA BONILLA MD Departed Emergency Room [facility] 07/08/16 12:07am 07/08/16 2: 16am TOMASA BONILLA MD Departed Emergency Room [facility] 06/10/16 10:28pm 06/10/16 11: 35pm TOMASA BONILLA MD Departed Emergency Room [facility] 05/30/16 8:21am 05/30/16 10: 48am KWESI PLATA MD Recent Diagnosis
--- NOTE | 2016-10-11 22:09 | ERPDOC ---
Departure Disposition Decision Date: October 11, 2016 Disposition Decision Time: 22:36 Disposition: 01 DISCHARGED HOME, SELF-CARE Impression Impression Impression: Primary Impression: Allergic rhinitis Additional Impression: Headache Severity: Moderate Condition: Stable Seen By: Physician only Referrals: SY THOMAS (PCP) Patient Instructions: Acute Headache (ED) Problems/Meds/Labs Reviewed?: Yes Medications reviewed and manag: Yes Follow up care ordered?: Yes Mental Status: Alert Scripts Orphenadrine Citrate (Orphenadrine Citrate) 100 Mg Tablet.er 100 MG PO Q12HR for SPASMS, #30 TAB Prov: SUNNY ISLAS MD 10/11/16 HPI - Headache General Chief Complaint: Headache Stated Complaint: DIFF SWALLOWING, SWOLLEN THROAT,MIGRAINE Time Seen by Provider: 22:08 HPI - Headache Initial Comments 31-year-old female presents with headache and sore throat. She states she's had her sore throat for 3 days. She thought she had a fever but hasn't checked her temperature. She has not taken anything for it except dose of Benadryl. She has not been taking extra fluids either because her throat has been scratchy. States she's had a lifelong history of "tonsillitis" and is worried that she has that again. She would like to be treated for it. She also has a headache which is an 8 out of 10. She needs something for pain for it. She is allergic to Toradol. Allergies: Coded Allergies: metoclopramide (Verified Allergy, Intermediate, CHOCKING, 10/11/16) amoxicillin (Verified Allergy, Unknown, 10/11/16) clavulanic acid (Verified Allergy, Unknown, 10/11/16) ketorolac (Verified Allergy, Unknown, SHORTNESS OF BREATH, 10/11/16) Past History Past Medical History Female: endometriosis, kidney stones, other Surgical History Reproductive/: D&C, tubal ligation Social History Smoking Status: Never smoker Does patient use chewing tobac: No Second Hand Exposure: Yes Substance Use Type: does not use Alcohol Intake: none Record Review Pertinent history updated: Yes Review of Systems Constitutional Constitutional: see HPI Eyes General: DENIES: burning, itching, pain Lids/Accessories: DENIES: erythema ENMT Ears: DENIES: drainage, erythema, pain Sinuses: see HPI Mouth/Throat: see HPI Cardiovascular Rhythm/Rate: tachycardia Pulmonary Respiratory: see HPI General: DENIES: dysuria, frequency, urgency Neurological General: see HPI Psychiatric Psychiatric: see HPI All other Systems All Other Systems: Reviewed and Negative Physical Exam General General Nourishment: well nourished, no acute distress, adult, obese General Body Habitus: well groomed Vitals and Pain First Documented Vital Signs Date Time Temp Pulse Resp B/P Pulse Ox O2 Delivery O2 Flow Rate FiO2 10/11/16 21:55 97.6 54 16 126/56 100 Room Air Weight: Kilograms: 91.600 Height (feet): 5 Height (inches): 4.00 Triage Pain Scale: Normal Exams: Head: Normocephalic w/o trauma Eyes: Pupils are PERRLA w/ EOMI, No scleral icterus, irritation, or foreign bodies noted Neck: Full range of motion, without adenopathy, JVD, bruits or thyromegaly Chest/Resp: Clear all peralta, with good airflow, and symmetry bilaterally CV: Regular rate and rhythm, without murmur or gallop, Pulses 2+ all extremities, capillary refill, <2 seconds all ext., no pedal edema noted Abdomen: Bowel sounds positive, soft, non-tender, non-distended, no hepatosplenomegaly, masses or bruits noted Neurologic: Patient is alert, and oriented, cranial nerves, motor/sensory/ cerebellar, exams w/o gross deficits, to observation Psychiatric: Patient exhibits, appropriate attention, emotion and affect ENMT (brief) Comments Nares are slightly reddened with minimal erythema, no drainage noted. Posterior oropharynx is also slightly reddened with minimal erythema noted. No exudate or discharge noted. No acute tonsillitis noted. Neck (brief) Neck: NOT FOUND: JVD, adenopathy, carotid bruits, thyromegaly Differential Diagnoses Considering: Headache, Headache - Migraine, Headache - Tension/Muscle, Sinusitis - Sphenoid, Sinusitis - Maxillary, Sinusitis - Frontal, Toothache, Vasculitis Progress Results/Orders Orders Procedure Category Date Status Time Strep A Antigen Screen LAB 10/11/16 Complete 22:37 Group A Strep Culture [facility] 10/11/16 In Process 22:55 Lab Results Laboratory Tests Test 10/11/16 22:41 Group A Streptococcus Screen Negative Progress Progress Patient has mild allergic rhinitis. Recommended that she changed to a different antihistamine that may be more effective something like Claritin. She'll need to take it every day. I offered that we could do a small dose of prednisone as a burst and taper to try and minimize the effects over the next couple of days. She stated that she needed something for pain for her headache and an antibiotic for throat. I did offer to do a strep swab, which she declined. She has no indication of acute bacterial infection. Therefore antibiotics are not going to help and may actually cause problems for her. She also refused Toradol , stating that she has an allergy to it. I offered Norflex, she initially act as if she didn't want it was, then stated that he could increase her heart rate and sure he had tachycardia issues and she does not want to risk it. She wants something stronger, which I'm not willing to give it this time. She has minimal symptoms and doesn't display significant pain. I'm concerned that she is asking for medication which is not appropriate for her, both antibiotic and narcotic pain reliever this time. The offer for prednisone burst and taper and a non- controlled muscle relaxer stands, she can be discharged or I'm happy to write those meds for her. Patient changed her mind and said that she would get a strep swab if I wanted. I do think it's reasonable to do and is now ordered. Strep test returned negative. I did write a prescription for Norflex 100 mg tablet twice daily as needed for muscle spasm. Patient is discharged. SUNNY ISLAS MD October 11, 2016 22:09
--- OUTSIDE RECORDS SUMMARY | 2016-10-11 22:24 | XMS REPORT ---
Author Author [facility], [facility] - Organization Unknown Address Unknown Phone [...] 22:18 Site: Received : 03/21/13 22:24 Order#: [id number] Affirm Vaginitis Panel FINAL 03/21/13 23:16 Positive [...] (5.0-8.0 ) Protein Negative (Negative ) Specific [place] 1.017 (1.003-1.030 ) Collection Type: Clean Catch Urobilinogen Negative mg/dL (-<1.0 mg/dL) Bacteria Occasional A Epithelial Cells 10-20 /HPF Mucus Present RBC 0-2 /HPF (0-2 /HPF) Trichomonas Present A WBC 10-20 /HPF A (0-4 /HPF)
[2016-10-11] MEDS ORDERED: CETI-115 PO (22:35)
[2016-10-11] MEDS ORDERED: ACET-2723 PO (22:35)
[2016-10-11] MEDS ORDERED: DIPH25CA84 PO (22:35)
[2016-10-11] MEDS ORDERED: LORA10TA62 PO (22:35)
--- NOTE | 2016-10-11 23:00 | NUR ---
STATUS WARM BLANKET GIVEN.
[2016-10-11] MEDS ORDERED: ORPH100T2 PO (23:05)
[2016-10-11] MEDS ORDERED: PRED10TA PO (23:11)
--- NOTE | 2016-10-11 23:15 | NUR ---
DISMISSAL NOTE DISMISSAL INSTRUCTIONS GIVEN TO PT. PT. STATES HER HEADACHE IS THE SAME OR A LITTLE WORSE. RX FOR PREDNISONE AND ORPHENADRINE GIVEN TO PT. PT. LEFT ED AMBULATORY BY SELF.
[2016-10-11 23:29] VITALS: BP 111/56; PULSE 86; RESP 18; O2SAT 99
== END 2016-10-11 23:15 | disposition home or self-care (01) ==
LOC: ED 21:53
DX: R51 Headache (principal); J30.9 Allergic rhinitis, unspecified
CPT/HCPCS: 87081; 87147; 87430